=== PATIENT | male | born 1975 | race Two or more races ===

== ENCOUNTER 2024-10-04 11:07 | Emergency (ER) | payer SELFPAY ==
[2024-10-04 12:07] VITALS: BP 121/76; PULSE 67; RESP 19; TEMP 36.8; O2SAT 96; BMI 45.0
--- NOTE | 2024-10-04 12:10 | XR_ITS ---
Examination: CT abdomen and pelvis without contrast. Coronal 3-D reconstructions. Sagittal 2-D reconstructions. Date and time of exam:October 04, 2024 1220 hrs. Indications: Abdominal pain lower back pain and fever beginning 3 days ago CTDI: vol (mGy): 13.5 DLP: (mGycm): 997 Technique: Axial images of the abdomen have been obtained, 3 mm slice thickness Intravenous contrast material has not been administered. Low dose protocols were performed. One or more of the following dose reduction techniques were used; automated exposure control, adjustment of the mA and/or KV according to patient size, use of iterative reconstruction technique. Findings: No focal liver or splenic lesion No gallstones No pancreatic mass. No renal or ureteral calculi, no hydronephrosis 3 cm fat-containing umbilical hernia. Normal appendix No bowel obstruction Scattered colonic diverticulosis Mild urinary bladder wall thickening Impression: No renal or ureteral calculi, no hydronephrosis Normal appendix Cystitis pattern
--- NOTE | 2024-10-04 12:12 | EDNOTE_ITS ---
<Statement entered by Valentina Licea MD - 10/04/24 17:35> As co-signing physician, I was present and available for consult prn. I concur with the plan and care as documented by the midlevel provider. ED General RME/HPI General Chief complaint: Back Pain/Injury Stated complaint: LOWER BACK PAIN Time Seen by Provider: 10/04/24 11:55 Arrival date/time: 10/04/24 11:07 CC: Low back pain HPI patient woke up this morning with low back region with his hands to the low back and spreading from the center spine outward on both sides stating he could not tie his shoes or difficulty getting out of bed this morning. Patient was diagnosed with a UTI yesterday started on antibiotics and was told by his PCP that if he had experienced back pain that he is to be reevaluated. Patient went to his PCP explained he had black back pain and was immediately referred to the emergency room for workup. Patient states he has had been intermittent fevers for the last 4 days. Currently the patient is afebrile nontoxic-appearing not in any acute distress. Related Data Previous Rx's ?Medication ?Instructions ?Recorded benzonatate 100 mg capsule 100 mg PO TID PRN cough #14 caps 08/10/22 ibuprofen 800 mg tablet (IBU) 800 mg PO Q8H #20 tabs 1 07/25/22 Allergies Allergy/AdvReac Type Severity Reaction Status Date / Time No Known Allergies Allergy Verified 05/25/23 12:16 Review of Systems Review of Systems Narrative Review of Systems: GEN: No fever, no chills, no weight loss EYES: No discharge, no visual changes, no pain HEENT: No ear pain, no congestion, no sore throat PULM: No shortness of breath, no cough, no congestion CV: No chest pain, no dyspnea on exertion, no palpitations GI: No nausea, no vomiting, no diarrhea, no pain, no constipation : No frequency, no urgency, no dysuria MUSC/SKEL: No joint pain, + back pain SKIN: No rash PSYCH: No hallucinations, no depression HEME/LYMPH: No easy bleeding or bruising tendencies NEURO: No weakness, no headache Past Medical History Past Medical History CARDIAC: Negative Cardiac Disorders or Congestive Heart Failure RESPIRATORY: Negative Chronic Obstructive Pulmonary Disease (COPD) or Asthma GENITOURINARY: Negative Renal Disease ENDOCRINE: Negative Diabetes Mellitus Type 1 or Diabetes Mellitus Type 2 HEMATOLOGIC: Negative Sickle Cell Disease Social History SMOKING STATUS: Never smoker SECOND HAND EXPOSURE: No ED Exam Narrative Physical exam: [General: Morbidly obese not in any acute distress Head normocephalic HEENT: Within acceptable limits Neck is supple nontender Chest equal chest rise nontender to palpation Respiratory: Clear to auscultation no wheezes crackles or rubs CV: Rate rhythm is regular no murmurs rubs or clicks Abdomen is distended secondary to body habitus soft nontender no masses positive bowel sounds all 4 quadrants Back: No CVA tenderness no spinous process tenderness from cervical spine thoracic and lumbar spine Skin: Intact no petechiae rash induration ulceration or crepitus Extremities: Moving all extremity against resistance cap refill less than 2 seconds neurosensory intact Neuro: Awake alert oriented x3 Glascow coma 15 no focal deficits] Course Quality Measures none Orders Category Date Time Status CT abdomen pelvis wo con Stat Exams 10/04/24 12:10 Taken CBC Stat Lab 10/04/24 12:44 Completed CMP [Comprehensive Metabolic Panel] Stat Lab 10/04/24 12:44 Completed Urinalysis, C/S if Indicated Stat Lab 10/04/24 12:18 Completed Vital Signs Vital signs: Vital Signs Temperature 98.3 F 10/04/24 12:07 Pulse Rate 67 10/04/24 12:07 Respiratory Rate 19 10/04/24 12:07 Blood Pressure 121/76 10/04/24 12:07 Pulse Oximetry (%) 96 10/04/24 12:07 Oxygen Delivery Method Room Air 10/04/24 12:07 [facility] Patient data External records reviewed:: [facility] previous records Clinical information provided by:: patient Social determinants that could affect healthcare access:: none Patient has the following chronic illnesses:: None How is presenting disease/condition affected by chronic disease/condition?: u neffected by Evaluation data The following diagnostics were reviewed and interpreted by me:: lab results and radiology exam(s) Lab and/or radiology exams considered but not ordered:: CBC shows no acute leukocytosis anemia thrombocytopenia CMP shows no acute electrolyte imbalances renal impairment transaminitis or T. bili elevation Urine is negative CT shows cystitis but no pyelonephritis. Interpretation Summary: Patient low back and his pain is musculoskeletal and not related to his UTI . Medications Medications considered but not ordered:: None Medication administrations:: None Consultations Consultation(s) initiated? (list below): No Diagnosis Differential Diagnosis ED Complaint MDM: Pyelonephritis low back strain low back fracture Most likely diagnosis given after review of the tests above:: Low back strain Admission Indicated Admission indicated?: not indicated Explain why admission is indicated or not indicated:: Stable for outpatient follow-up Admission Request Was there a request for admission?: No Disposition Plan Disposition Plan: Discharge Discharge Attestation Discharge Attestation: The patient and all family members were given an opportunity to ask questions and understood the discharge instructions. Discharge instructions specifically effects, indications for sooner follow up or return to the emergency department, and the expected course of current diagnosis. Patient condition: Stable Medical Decision Making Differential Diagnosis Differential Diagnosis: Pyelonephritis low back strain low back fracture Lab Data 10/04/24 12:44 10/04/24 12:44 Labs: Lab Results 10/04/24 10/04/24 Range/Units 12:18 12:44 WBC 8.0 (3.8-10.6) Thou/mm3 RBC 4.60 (4.50-5.90) Miln/mm3 Hgb 14.8 (13.5-16.0) g/dL Hct 42.6 (41.0-53.0) % MCV 93 (80-100) fL MCH 32.2 (25.0-35.0) pg MCHC 34.7 (31.0-37.0) g/dl RDW Std Deviation 40.8 (35.1-43.9) fL Plt Count 279 (140-440) Thou/mm3 Neut % (Auto) 54 (37-80) % Lymph % (Auto) 25 (10-50) % Kendall % (Auto) 18 H (0-12) % Eos % (Auto) 2 (0-10) % Baso % (Auto) 1 (0-2.5) % Neut # (Auto) 4.4 (1.8-7.7) Thou/mm3 Lymph # (Auto) 2.0 (1.0-4.8) Thou/mm3 Kendall # (Auto) 1.5 H (0.0-0.8) Thou/mm3 Eos # (Auto) 0.1 (0.0-0.5) Thou/mm3 Baso # (Auto) 0.0 (0.0-0.2) Thou/mm3 Immature Gran # (Auto) 0.03 H (0.00-0.00) Thou/mm3 Absolute Nucleated RBC 0.00 (0.00-0.00) Thou/mm3 Immature Gran % 0 (0-0) % Nucleated RBC % 0 (0) /100 WBC Sodium 141 (136-145) mMol/L Potassium 3.6 (3.4-5.1) mMol/L Chloride 107 (98-107) mMol/L Carbon Dioxide 29.0 (20.0-31.0) mMol/L Anion Gap 5 L (7-16) BUN 10 (9-23) mg/dL Creatinine 0.9 (0.6-1.3) mg/dL Estim Creat Clear Calc 130.3 (>60) mL/min eGFR > 60 (60 - ) See Note BUN/Creatinine Ratio 11 L (12-20) Ratio Glucose 98 (74-106) mg/dL Calculated Osmolality 280 (275-295) Calcium 8.8 (8.3-10.6) mg/dL Corrected Calcium 8.8 (8.5-10.1) mg/dL Total Bilirubin 0.3 (0.3-1.2) mg/dL AST 21 (0-34) U/L ALT 34 (10-49) U/L Alkaline Phosphatase 66 (46-116) U/L Total Protein 7.2 (5.7-8.2) gm/dL Albumin 4.0 (3.5-5.0) gm/dL Globulin 3.2 (2.3-3.5) gm/dL Albumin/Globulin Ratio 1.3 (1.2-2.2) Ur Collection Type Clean Catch Urine Color Lt-Yellow (Lt Yel-Yel) Urine Clarity Clear (Clear/Hazy) Urine pH 6.5 (5.0-7.0) Ur Specific [place] 1.015 (1.001-1.035) Urine Protein Negative (Neg - Trace) Urine Glucose (UA) Negative (Negative) Urine Ketones Negative (Negative) Urine Blood Negative (Negative) Urine Nitrite Negative (Negative) Urine Bilirubin Negative (Negative) Urine Urobilinogen (Auto) Negative (0.0-1.0) mg/dL Ur Leukocyte Esterase Negative (Negative) Urine RBC 1 (0-3) /hpf Urine WBC 5 (0-5) /hpf Ur Squamous Epith Cells < 1 (0-5) /hpf Urine Bacteria None (None) Ur Culture Indicated? Not Indicated Discharge Plan Plan Patient Disposition: HOME (Self Care) Patient condition on transfer: Stable Prescriptions/Referrals Prescriptions/Med Rec: No Action benzonatate 100 mg capsule 100 mg PO TID PRN (Reason: cough) Qty: 14 0RF ibuprofen [IBU] 800 mg tablet 800 mg PO Q8H Qty: 20 0RF Referrals: Gunner Guerra MD [Primary Care Provider] - In 1 week Problem List Clinical Impression: Low back strain Patient/Caregiver Discharge Instructions Other Activity Instructions:: Your low back pain is not related to your urinary tract infection please continue on your antibiotics take ibuprofen or Tylenol for your back strain avoid heavy lifting. Education Materials: ED Back Sprain/Strain Print Language: Azeri Stand Alone Forms: Ellen Award Info., Work/School Release, Patient Portal Info Letter PA/LIZA Supervising Physician PA/LIZA Supervising Physician: Luis Gorman ENP
[2024-10-04 12:40] LABS: Collection Type, Urine Clean Catch
[2024-10-04 12:57] LABS: Bilirubin,Urine Negative (Negative); Blood,Urine Negative (Negative); Clarity,Urine Clear (Clear/Hazy); Color,Urine Lt-Yellow (Lt Yel-Yel); Culture Indicated,Urine Not Indicated; Glucose, Urine Negative (Negative); Ketones,Urine Negative (Negative); Leukocyte Esterase,Urine Negative (Negative); Nitrite,Urine Negative (Negative); PH,Urine 6.5 (5.0-7.0); Protein,Urine Negative (Neg - Trace); RBC,Urine 1 /hpf (0-3); Specific Gravity,Urine 1.015 (1.001-1.035); Squamous Epithelial Cell,Urine < 1 /hpf (0-5); Urobilinogen,Urine Negative mg/dL (0.0-1.0); WBC,Urine 5 /hpf (0-5)
--- NOTE | 2024-10-04 12:58 | PRELIM_ITS ---
CT scan of the abdomen and pelvis without intravenous contrast (axial sections with sagittal and coronal reformats) October 04, 2024 1221 hours Clinical History: low back pain with UTI dx yesterday fevers Comparison: No prior study is available for comparison. Findings: The lung bases are clear. The liver, gallbladder, pancreas, spleen, kidneys and adrenals are unremarkable on this noncontrast study. There are multiple colonic diverticula without evidence of diverticulitis. A moderate amount of fecal material is present in the colon. No evidence of bowel obstruction. The appendix is within normal limits. There is no mesenteric or retroperitoneal adenopathy. The urinary bladder wall is thickened with perivesical fat stranding. There is no free fluid or free air. Degenerative changes are identified in the spine. A fat-containing umbilical hernia is present. Impression: No evidence of renal/ureteric calculus or hydroureteronephrosis. Urinary bladder wall is thickened with perivesical fat stranding, consistent with cystitis. Other findings as described above. Report Electronically Signed By: Miguel De Leon 10/04/2024 12:57:14 PM [EST]
[2024-10-04 13:16] LABS: Basophils % (Auto) 1 % (0-2.5); Eosinophils # (Auto) 0.1 Thou/mm3 (0.0-0.5); Eosinophils % (Auto) 2 % (0-10); Hematocrit 42.6 % (41.0-53.0); Hemoglobin 14.8 g/dL (13.5-16.0); Immature Granulocytes % (Auto) 0 % (0-0); Immature Granulocytes Auto 0.03 Thou/mm3 (0.00-0.00); Lymphocytes % (Auto) 25 % (10-50); Mean Corpuscular HGB Conc 34.7 g/dl (31.0-37.0); Mean Corpuscular Hemoglobin 32.2 pg (25.0-35.0); Mean Corpuscular Volume 93 fL (80-100); Monocytes # (Auto) 1.5 Thou/mm3 (0.0-0.8); Monocytes % (Auto) 18 % (0-12); Neutrophils # (Auto) 4.4 Thou/mm3 (1.8-7.7); Neutrophils % (Auto) 54 % (37-80); Nucleated Red Blood Cell % 0 /100 WBC (0); Platelet Count 279 Thou/mm3 (140-440); RDW Standard Deviation 40.8 fL (35.1-43.9)
[2024-10-04 13:25] LABS: Alanine Aminotransferase 34 U/L (10-49); Albumin/Globulin Ratio 1.3 (1.2-2.2); Alkaline Phosphatase 66 U/L (46-116); Anion Gap 5 (7-16); Aspartate Amino Transferase 21 U/L (0-34); BUN/Creatinine Ratio 11 Ratio (12-20); Bilirubin,Total 0.3 mg/dL (0.3-1.2); Blood Urea Nitrogen 10 mg/dL (9-23); Calcium 8.8 mg/dL (8.3-10.6); Calcium (Corrected) 8.8 mg/dL (8.5-10.1); Chloride 107 mMol/L (98-107); Creatinine (Component) 0.9 mg/dL (0.6-1.3); Estimated Creatinine Clearance 130.3 mL/min (>60); Globulin 3.2 gm/dL (2.3-3.5); Glucose 98 mg/dL (74-106); Osmolality,Calculated 280 (275-295); Potassium 3.6 mMol/L (3.4-5.1); Sodium 141 mMol/L (136-145); Total Protein 7.2 gm/dL (5.7-8.2); eGFR > 60 See Note
[2024-10-04 14:24] VITALS: BP 132/87; PULSE 68; RESP 18; TEMP 36.3; O2SAT 95
== END 2024-10-04 14:58 | disposition home or self-care (01) ==
PROVIDERS: Registered Nurse General Practice; Emergency Provider Emergency Medicine; PCP Family Medicine
DX: S39.012A Strain of muscle, fascia and tendon of lower back, initial encounter (principal); X58.XXXA Exposure to other specified factors, initial encounter
CPT/HCPCS: 36415; 74176; 80053; 81001; 85025; 99284